=== PATIENT | female | born 1950 | race Caucasian/White ===

== ENCOUNTER → 2016-11-07 | Outpatient (CLI) | payer MEDICARE, OTHER ==
[~2016-11-07] MED LIST: ALLEGRA-D 12 HO1 TE1 PO; DESYREL DIVIDO150 M1 PO; FENTANYL TOP; IBU600 MG PO; LEVOTHYROXINE PO; MIRALAX17 GM PO; NATURE'S BLEN5000 IU PO; NEXIUM 40MG40 MG PO; NORCO 325 MG-7.1 TA1 PO; OMEPRAZOLE D/R20 MG PO; ORAL ANTIBIOTIC; PERCOCET 325 MG1 TA5 PO; ROBAXIN-750750 MG PO; SENNA8.6 M1 PO; SERTRALINE PO; SYNTHROID0.075 MG/T PO; SYNTHROID0.2 MG/TAB PO; ULTRAM50 M1 PO; [UNRECOGNIZED DRUG - OTHER] TOP
[2016-11-07 12:30] VITALS: BP 136/80
== END ==
LOC: AMSURD 12:03
DX: R73.02 Impaired glucose tolerance (oral) (principal); E03.4 Atrophy of thyroid (acquired); E78.2 Mixed hyperlipidemia; M85.89 Other specified disorders of bone density and structure, multiple sites; M15.8 Other polyosteoarthritis; I49.3 Ventricular premature depolarization

== ENCOUNTER → 2016-11-29 | Outpatient (CLI) | payer MEDICARE, OTHER ==
[2016-11-07 12:30] VITALS: BP 136/80
== END ==
LOC: LAB 15:52
DX: Z12.11 Encounter for screening for malignant neoplasm of colon (principal)

== ENCOUNTER → 2017-01-08 | Outpatient (CLI) | payer MEDICARE, OTHER | LOC: RAD 15:50 | DX: S60.122A Contusion of left index finger with damage to nail, initial encounter (principal); S61.217A Laceration without foreign body of left little finger without damage to nail, initial encounter; W45.8XXA Other foreign body or object entering through skin, initial encounter ==

== ENCOUNTER → 2017-01-11 | Outpatient (CLI) | payer MEDICARE, OTHER ==
[2016-11-07 12:30] VITALS: BP 136/80
== END ==
LOC: LAB 16:41
DX: E03.4 Atrophy of thyroid (acquired) (principal)

== ENCOUNTER → 2017-01-23 | Outpatient (CLI) | payer MEDICARE, OTHER ==
[2016-11-07 12:30] VITALS: BP 136/80
== END ==
LOC: MAMMO 10:26
DX: Z12.31 Encounter for screening mammogram for malignant neoplasm of breast (principal)
CPT/HCPCS: G0202

== ENCOUNTER → 2017-01-23 | Outpatient (CLI) | payer MEDICARE, OTHER ==
[2016-11-07 12:30] VITALS: BP 136/80
== END ==
LOC: RAD 10:28
DX: Z13.820 Encounter for screening for osteoporosis (principal); M85.89 Other specified disorders of bone density and structure, multiple sites; M85.851 Other specified disorders of bone density and structure, right thigh

== ENCOUNTER → 2017-07-05 | Outpatient (CLI) | payer MEDICARE, OTHER ==
[2016-11-07 12:30] VITALS: BP 136/80
== END ==
LOC: LAB 16:35
DX: N76.0 Acute vaginitis (principal)
CPT/HCPCS: Q0111

== ENCOUNTER → 2017-08-07 | Outpatient (CLI) | payer MEDICARE, OTHER ==
[2016-11-07 12:30] VITALS: BP 136/80
== END ==
LOC: LAB 15:29
DX: E03.9 Hypothyroidism, unspecified (principal)

== ENCOUNTER → 2017-11-28 | Outpatient (CLI) | payer MEDICARE, OTHER ==
[2016-11-07 12:30] VITALS: BP 136/80
[2017-11-28 12:25] LABS: EOS # 0.3 (0.04-0.40); EOS % 4.6 % (1.0-5.0); HEMATOCRIT 39.6 % (37.0-47.0); HEMOGLOBIN 13.6 g/dL (12.5-16.0); MEAN CELL VOLUME 87 fl (78-100); MEAN CORPUSCULAR HEMOGLOBIN 30 pg (27-31); MEAN CORPUSCULAR HGB CONC 34 g/dL (33-37); MEAN PLATELET VOLUME 10.1 fl (7.4-10.4); MONO # 0.4 (0.20-0.80); PLATELET COUNT 107 K/mm3 (130-400); RED BLOOD COUNT 4.56 M/mm3 (4.10-5.30); RED CELL DISTRIBUTION WIDTH 12.5 % (11.5-14.5); WHITE BLOOD COUNT 5.7 K/mm3 (4.8-10.8)
[2017-11-28 12:51] LABS: BUN/CREATININE RATIO 36.4 (6.0-26.0); CALCIUM 8.9 mg/dL (8.4-10.2); POTASSIUM 4.4 mmol/L (3.6-5.0); TOTAL BILIRUBIN 0.3 mg/dL (0.2-1.3); TOTAL PROTEIN 6.8 g/dL (6.3-8.2)
[2017-11-28 12:55] LABS: PH-URINE 6.5 (5.0 - 8.0); URINE APPEARANCE CLEAR; URINE COLOR YELLOW
[2017-11-28 12:56] LABS: URINE BILIRUBIN NEGATIVE (NEGATIVE); URINE BLOOD NEGATIVE (NEGATIVE); URINE GLUCOSE NEGATIVE (NEGATIVE); URINE KETONE NEGATIVE (NEGATIVE); URINE LEUKOCYTE ESTERASE NEGATIVE (NEGATIVE); URINE NITRATE NEGATIVE (NEGATIVE); URINE PROTEIN(semi-quant) NEGATIVE (NEGATIVE); URINE UROBILINOGEN NORMAL (NORMAL)
[2017-11-28 13:38] LABS: ERYTHROCYTE SEDIMENTATION RATE 12 mm/hr (0-30)
== END ==
LOC: LAB 11:58
PROVIDERS: Internal Medicine
DX: Z12.11 Encounter for screening for malignant neoplasm of colon (principal)

== ENCOUNTER → 2017-12-26 | Outpatient (CLI) | payer MEDICARE, OTHER ==
[2016-11-07 12:30] VITALS: BP 136/80
[2017-12-26 17:31] LABS: CLUE CELLS PRESENT (Not Observd)
== END ==
LOC: LAB 16:35
PROVIDERS: Physician Assistant
DX: Z12.11 Encounter for screening for malignant neoplasm of colon (principal); N89.8 Other specified noninflammatory disorders of vagina; Z88.5 Allergy status to narcotic agent
CPT/HCPCS: Q0111

== ENCOUNTER → 2018-01-22 | Day surgery (SDC) | payer MEDICARE, OTHER ==
[2016-11-07 12:30] VITALS: BP 136/80
== END ==
LOC: MSO 12:47
DX: K22.70 Barrett's esophagus without dysplasia (principal); K21.9 Gastro-esophageal reflux disease without esophagitis; G47.33 Obstructive sleep apnea (adult) (pediatric); E03.9 Hypothyroidism, unspecified; Z88.5 Allergy status to narcotic agent; K29.00 Acute gastritis without bleeding; K29.50 Unspecified chronic gastritis without bleeding; Z87.891 Personal history of nicotine dependence; F32.9 Major depressive disorder, single episode, unspecified; M48.061 Spinal stenosis, lumbar region without neurogenic claudication
CPT/HCPCS: 00731; A4649; J2704; J7120

== ENCOUNTER → 2018-02-27 | Outpatient (CLI) | payer MEDICARE, OTHER ==
[2016-11-07 12:30] VITALS: BP 136/80
== END ==
LOC: MAMMO 09:06
DX: Z12.31 Encounter for screening mammogram for malignant neoplasm of breast (principal)

== ENCOUNTER → 2018-09-17 | Outpatient (CLI) | payer MEDICARE, OTHER ==
[2016-11-07 12:30] VITALS: BP 136/80
[2018-09-18 04:08] LABS: EOS # 0.2 (0.04-0.40); EOS % 3.3 % (1.0-5.0); HEMATOCRIT 40.9 % (37.0-47.0); HEMOGLOBIN 13.9 g/dL (12.5-16.0); LYMPH# 0.8 (1.50-4.00); MEAN CELL VOLUME 87 fl (78-100); MEAN CORPUSCULAR HEMOGLOBIN 30 pg (27-31); MEAN CORPUSCULAR HGB CONC 34 g/dL (33-37); MONO # 0.4 (0.20-0.80); NEU # 4.4 (1.40-6.50); PLATELET COUNT 113 K/mm3 (130-400); RED BLOOD COUNT 4.71 M/mm3 (4.10-5.30); RED CELL DISTRIBUTION WIDTH 12.8 % (11.5-14.5); WHITE BLOOD COUNT 5.8 K/mm3 (4.8-10.8)
[2018-09-18 12:56] LABS: ESTRADIOL 26 pg/mL (()); PROGESTERONE <0.1 ng/mL (())
== END ==
LOC: LAB 16:35
PROVIDERS: Urology
DX: Z79.890 Hormone replacement therapy (principal)

== ENCOUNTER → 2019-01-08 | Outpatient (CLI) | payer MEDICARE, OTHER ==
[2016-11-07 12:30] VITALS: BP 136/80
[2019-01-08 15:42] LABS: HEMATOCRIT 40.7 % (37.0-47.0); HEMOGLOBIN 13.5 g/dL (12.5-16.0); MEAN CELL VOLUME 87 fl (78-100); MEAN CORPUSCULAR HEMOGLOBIN 29 pg (27-31); MEAN CORPUSCULAR HGB CONC 33 g/dL (33-37); MEAN PLATELET VOLUME 10.9 fl (7.4-10.4); PLATELET COUNT 100 K/mm3 (130-400); RED BLOOD COUNT 4.68 M/mm3 (4.10-5.30); RED CELL DISTRIBUTION WIDTH 13.7 % (11.5-14.5); WHITE BLOOD COUNT 4.7 K/mm3 (4.8-10.8)
[2019-01-08 17:04] LABS: LYMPHOCYTE 13 % (20-51); MONOCYTE 6 % (3-10); NEUTROPHILS 78 % (42-75)
[2019-01-08 20:06] LABS: CALCIUM 9.1 mg/dL (8.4-10.2); POTASSIUM 4.3 mmol/L (3.6-5.0); TOTAL BILIRUBIN 0.8 mg/dL (0.2-1.3); TOTAL PROTEIN 6.9 g/dL (6.3-8.2)
[2019-01-08 22:47] LABS: ESTRADIOL 54 pg/mL (()); PROGESTERONE 0.2 ng/mL (()); TESTOSTERONE 20 ng/dL (13-36)
[2019-01-09 00:03] LABS: INSULIN 12 uIU/mL (2-23)
[2019-01-17 10:35] LABS: ESTRONE-SERUM 29 pg/mL (())
== END ==
LOC: LAB 14:53
PROVIDERS: Urology
DX: Z13.220 Encounter for screening for lipoid disorders (principal); Z79.890 Hormone replacement therapy; E63.9 Nutritional deficiency, unspecified; Z72.4 Inappropriate diet and eating habits; E78.5 Hyperlipidemia, unspecified; R73.09 Other abnormal glucose; E55.9 Vitamin D deficiency, unspecified

== ENCOUNTER → 2019-04-08 | Outpatient (CLI) | payer MEDICARE, OTHER ==
[2016-11-07 12:30] VITALS: BP 136/80
== END ==
LOC: MAMMO 14:28
DX: Z12.31 Encounter for screening mammogram for malignant neoplasm of breast (principal)

== ENCOUNTER 2019-04-28 20:22 | Emergency (ER) | payer MEDICARE, OTHER ==
[2019-04-28] MEDS ORDERED: SILVADENE11 TP (21:11)
[2019-04-28] MEDS ORDERED: PERCOCET 325 MG1 TA2 PO (21:12)
[2019-04-28 21:20] VITALS: BP 156/69
== END 2019-04-28 21:20 | disposition home or self-care (01) ==
LOC: ED 20:22
DX: T22.212A Burn of second degree of left forearm, initial encounter (principal); T31.0 Burns involving less than 10% of body surface; K21.9 Gastro-esophageal reflux disease without esophagitis; G47.30 Sleep apnea, unspecified; F32.9 Major depressive disorder, single episode, unspecified; D69.6 Thrombocytopenia, unspecified; Z23 Encounter for immunization; Z87.891 Personal history of nicotine dependence; Z88.5 Allergy status to narcotic agent; Z90.710 Acquired absence of both cervix and uterus; X17.XXXA Contact with hot engines, machinery and tools, initial encounter; Y93.H2 Activity, gardening and landscaping; Y92.007 Garden or yard of unspecified non-institutional (private) residence as the place of occurrence of the external cause
CPT/HCPCS: 90715

== ENCOUNTER 2019-06-19 15:00 | Outpatient (RCR) | payer MEDICARE, OTHER ==
[~2019-06-19 15:00] MED LIST changes: +PERCOCET 325 MG1 TA2 PO; +SILVADENE11 TP
== END 2019-06-19 15:30 | disposition home or self-care (01) ==
LOC: PT 15:00
DX: M51.36 Other intervertebral disc degeneration, lumbar region (principal)

== ENCOUNTER → 2019-10-28 | Outpatient (CLI) | payer MEDICARE, OTHER ==
[2019-10-28 16:30] LABS: EOS # 0.2 (0.04-0.40); EOS % 3.7 % (1.0-5.0); HEMATOCRIT 39.6 % (37.0-47.0); HEMOGLOBIN 13.4 g/dL (12.5-16.0); MEAN CELL VOLUME 87 fl (78-100); MEAN CORPUSCULAR HEMOGLOBIN 30 pg (27-31); MEAN CORPUSCULAR HGB CONC 34 g/dL (33-37); MEAN PLATELET VOLUME 10.6 fl (7.4-10.4); MONO # 0.4 (0.20-0.80); NEU # 3.3 (1.40-6.50); PLATELET COUNT 107 K/mm3 (130-400); RED BLOOD COUNT 4.53 M/mm3 (4.10-5.30); RED CELL DISTRIBUTION WIDTH 13.1 % (11.5-14.5); WHITE BLOOD COUNT 4.6 K/mm3 (4.8-10.8)
[2019-10-28 16:34] LABS: ALBUMIN 4.2 g/dL (3.4-4.8); POTASSIUM 4.6 mmol/L (3.5-5.1)
[2019-10-28 16:35] LABS: CALCIUM 8.1 mg/dL (8.3-10.5)
[2019-10-28 16:37] LABS: TOTAL PROTEIN 6.8 g/dL (6.2-8.1)
[2019-10-28 16:38] LABS: TOTAL BILIRUBIN 0.7 mg/dL (0.2-1.2)
[2019-10-28 17:28] LABS: LYMPH# 0.7 (1.50-4.00)
[2019-10-28 17:29] LABS: ERYTHROCYTE SEDIMENTATION RATE 12 mm/hr (0-30)
[2019-10-29 18:35] LABS: ESTRADIOL 41 pg/mL (()); PROGESTERONE 1.1 ng/mL (())
[2019-10-29 19:14] LABS: TESTOSTERONE <13 ng/dL (13-36)
== END ==
LOC: LAB 15:49
PROVIDERS: Internal Medicine
DX: N95.1 Menopausal and female climacteric states (principal); R73.02 Impaired glucose tolerance (oral); M85.89 Other specified disorders of bone density and structure, multiple sites; E78.5 Hyperlipidemia, unspecified; E03.9 Hypothyroidism, unspecified

== ENCOUNTER 2020-03-26 09:04 | Emergency (ER) | payer MEDICARE, OTHER ==
[~2020-03-26] VITALS: Ht 162.6 cm; Wt 100.5 kg
[2020-03-26] MEDS ORDERED: PREMPHASE 0.621 EACH PO (09:43)
[2020-03-26 09:56] LABS: HEMATOCRIT 42.4 % (37.0-47.0); HEMOGLOBIN 14.5 g/dL (12.5-16.0); MEAN CELL VOLUME 87 fl (78-100); MEAN CORPUSCULAR HEMOGLOBIN 30 pg (27-31); MEAN CORPUSCULAR HGB CONC 34 g/dL (33-37); MEAN PLATELET VOLUME 10.4 fl (7.4-10.4); PLATELET COUNT 115 K/mm3 (130-400); RED BLOOD COUNT 4.87 M/mm3 (4.10-5.30); RED CELL DISTRIBUTION WIDTH 12.7 % (11.5-14.5); WHITE BLOOD COUNT 7.4 K/mm3 (4.8-10.8)
[2020-03-26 10:08] LABS: ALBUMIN 4.3 g/dL (3.4-4.8); POTASSIUM 4.2 mmol/L (3.5-5.1)
[2020-03-26 10:10] LABS: CALCIUM 9.6 mg/dL (8.3-10.5)
[2020-03-26 10:11] LABS: TOTAL PROTEIN 7.2 g/dL (6.2-8.1)
[2020-03-26 10:13] LABS: TOTAL BILIRUBIN 0.4 mg/dL (0.2-1.2)
[2020-03-26 10:25] LABS: LYMPHOCYTE 15 % (20-51); MONOCYTE 6 % (3-10); NEUTROPHILS 78 % (42-75)
[2020-03-26 12:07] LABS: URINE APPEARANCE CLEAR; URINE BILIRUBIN NEGATIVE (NEGATIVE); URINE COLOR YELLOW; URINE GLUCOSE NEGATIVE (NEGATIVE); URINE KETONE NEGATIVE (NEGATIVE); URINE PROTEIN(semi-quant) NEGATIVE (NEGATIVE); URINE UROBILINOGEN NORMAL (NORMAL)
[2020-03-26 12:08] VITALS: BP 139/87
[2020-03-26 12:08] LABS: URINE BLOOD NEGATIVE (NEGATIVE); URINE LEUKOCYTE ESTERASE NEGATIVE (NEGATIVE); URINE MUCUS PRESENT (NOT PRESENT); URINE NITRATE NEGATIVE (NEGATIVE)
== END 2020-03-26 12:08 | disposition home or self-care (01) ==
LOC: ED 09:04
PROVIDERS: Nurse Practitioner Primary Care
DX: H53.8 Other visual disturbances (principal); F43.0 Acute stress reaction; F32.9 Major depressive disorder, single episode, unspecified; Z96.653 Presence of artificial knee joint, bilateral; Z96.642 Presence of left artificial hip joint

== ENCOUNTER → 2020-04-30 | Outpatient (CLI) | payer MEDICARE, OTHER ==
[~2020-04-30] MED LIST changes: +PREMPHASE 0.621 EACH PO
[2020-04-30 13:04] LABS: HEMATOCRIT 41.5 % (37.0-47.0); HEMOGLOBIN 14.1 g/dL (12.5-16.0); MEAN CELL VOLUME 87 fl (78-100); MEAN CORPUSCULAR HEMOGLOBIN 30 pg (27-31); MEAN CORPUSCULAR HGB CONC 34 g/dL (33-37); MEAN PLATELET VOLUME 10.4 fl (7.4-10.4); PLATELET COUNT 103 K/mm3 (130-400); RED BLOOD COUNT 4.75 M/mm3 (4.10-5.30); RED CELL DISTRIBUTION WIDTH 12.9 % (11.5-14.5); WHITE BLOOD COUNT 7.3 K/mm3 (4.8-10.8)
[2020-04-30 13:14] LABS: POTASSIUM 4.4 mmol/L (3.5-5.1)
[2020-04-30 13:15] LABS: ALBUMIN 4.4 g/dL (3.4-4.8)
[2020-04-30 13:16] LABS: CALCIUM 9.1 mg/dL (8.3-10.5)
[2020-04-30 13:17] LABS: TOTAL PROTEIN 7.3 g/dL (6.2-8.1)
[2020-04-30 13:19] LABS: TOTAL BILIRUBIN 0.4 mg/dL (0.2-1.2)
[2020-04-30 13:44] LABS: LYMPHOCYTE 9 % (20-51); MONOCYTE 2 % (3-10); NEUTROPHILS 81 % (42-75)
[2020-04-30 14:02] LABS: ERYTHROCYTE SEDIMENTATION RATE 15 mm/hr (0-30); PH-URINE 6.5 (5.0 - 8.0); URINE APPEARANCE CLEAR; URINE COLOR YELLOW; URINE PROTEIN(semi-quant) TRACE mg/dL (NEGATIVE)
[2020-04-30 14:03] LABS: URINE BILIRUBIN NEGATIVE (NEGATIVE); URINE BLOOD NEGATIVE (NEGATIVE); URINE GLUCOSE NEGATIVE (NEGATIVE); URINE KETONE NEGATIVE (NEGATIVE); URINE LEUKOCYTE ESTERASE NEGATIVE (NEGATIVE); URINE NITRATE NEGATIVE (NEGATIVE); URINE UROBILINOGEN NORMAL (NORMAL)
== END ==
LOC: LAB 12:40
PROVIDERS: Internal Medicine
DX: Z12.11 Encounter for screening for malignant neoplasm of colon (principal); E78.5 Hyperlipidemia, unspecified; E03.9 Hypothyroidism, unspecified; M85.80 Other specified disorders of bone density and structure, unspecified site; R73.02 Impaired glucose tolerance (oral)

== ENCOUNTER → 2020-05-12 | Outpatient (CLI) | payer MEDICARE, OTHER | LOC: MAMMO 15:34 | DX: Z12.31 Encounter for screening mammogram for malignant neoplasm of breast (principal) ==

== ENCOUNTER → 2020-05-12 | Outpatient (CLI) | payer MEDICARE, OTHER | LOC: RAD 05-11 15:00 | DX: H54.62 Unqualified visual loss, left eye, normal vision right eye (principal); I65.23 Occlusion and stenosis of bilateral carotid arteries ==

== ENCOUNTER → 2020-07-19 | Outpatient (CLI) | payer MEDICARE, OTHER ==
[2020-07-19 09:29] LABS: ALBUMIN 4.5 g/dL (3.4-4.8)
[2020-07-19 09:30] LABS: POTASSIUM 4.5 mmol/L (3.5-5.1)
[2020-07-19 09:31] LABS: CALCIUM 9.5 mg/dL (8.3-10.5)
[2020-07-19 09:32] LABS: TOTAL PROTEIN 7.4 g/dL (6.2-8.1)
[2020-07-19 09:34] LABS: TOTAL BILIRUBIN 0.7 mg/dL (0.2-1.2)
[2020-07-20 04:22] LABS: PROGESTERONE 1.5 ng/mL (())
== END ==
LOC: LAB 09:08
PROVIDERS: Internal Medicine
DX: E03.9 Hypothyroidism, unspecified (principal); N95.1 Menopausal and female climacteric states; R73.02 Impaired glucose tolerance (oral)

== ENCOUNTER → 2020-08-06 | Outpatient (CLI) | payer MEDICARE, OTHER | LOC: CARDLAB 08-05 15:13 | DX: G47.10 Hypersomnia, unspecified (principal); G47.8 Other sleep disorders; R53.83 Other fatigue | CPT/HCPCS: G0399 ==

== ENCOUNTER 2020-08-31 09:31 | Outpatient (RCR) | payer MEDICARE | END 2020-09-06 16:13 | LOC: OPPGERO 09:31 | DX: F33.9 Major depressive disorder, recurrent, unspecified (principal); Z96.649 Presence of unspecified artificial hip joint; Z96.659 Presence of unspecified artificial knee joint; Z87.891 Personal history of nicotine dependence ==

== ENCOUNTER 2020-09-07 12:18 | Outpatient (RCR) | payer MEDICARE | END 2020-10-07 18:20 | disposition home or self-care (01) | LOC: OPPGERO 12:18 | DX: F33.1 Major depressive disorder, recurrent, moderate (principal); I10 Essential (primary) hypertension; M19.90 Unspecified osteoarthritis, unspecified site; K21.9 Gastro-esophageal reflux disease without esophagitis; Z96.659 Presence of unspecified artificial knee joint; Z96.649 Presence of unspecified artificial hip joint; Z87.891 Personal history of nicotine dependence ==

== ENCOUNTER → 2020-10-28 | Outpatient (CLI) | payer MEDICARE ==
[2020-10-28 17:14] LABS: POTASSIUM 4.4 mmol/L (3.5-5.1)
[2020-10-28 17:15] LABS: ALBUMIN 4.1 g/dL (3.4-4.8)
[2020-10-28 17:17] LABS: TOTAL PROTEIN 6.6 g/dL (6.2-8.1)
[2020-10-28 17:18] LABS: HEMATOCRIT 40.9 % (37.0-47.0); HEMOGLOBIN 13.5 g/dL (12.5-16.0); MEAN CELL VOLUME 89 fl (78-100); MEAN CORPUSCULAR HEMOGLOBIN 30 pg (27-31); MEAN CORPUSCULAR HGB CONC 33 g/dL (33-37); MEAN PLATELET VOLUME 10.7 fl (7.4-10.4); PLATELET COUNT 109 K/mm3 (130-400); RED BLOOD COUNT 4.58 M/mm3 (4.10-5.30); RED CELL DISTRIBUTION WIDTH 12.6 % (11.5-14.5); WHITE BLOOD COUNT 5.3 K/mm3 (4.8-10.8)
[2020-10-28 17:19] LABS: TOTAL BILIRUBIN 0.4 mg/dL (0.2-1.2)
[2020-10-28 20:48] LABS: LYMPHOCYTE 11 % (20-51); MONOCYTE 4 % (3-10); NEUTROPHILS 83 % (42-75)
== END ==
LOC: LAB 16:40
PROVIDERS: Internal Medicine
DX: E03.4 Atrophy of thyroid (acquired) (principal); I10 Essential (primary) hypertension; K90.9 Intestinal malabsorption, unspecified; E78.2 Mixed hyperlipidemia

== ENCOUNTER → 2020-12-10 | Outpatient (CLI) | payer MEDICARE | LOC: CARDLAB 12-09 13:22 → CARDREHAB 07:51 | DX: I25.10 Atherosclerotic heart disease of native coronary artery without angina pectoris (principal) | CPT/HCPCS: A9500 ==

== ENCOUNTER → 2021-06-15 | Outpatient (CLI) | payer MEDICARE | LOC: MAMMO 14:19 | DX: Z12.31 Encounter for screening mammogram for malignant neoplasm of breast (principal) ==

== ENCOUNTER → 2021-09-26 | Outpatient (CLI) | payer MEDICARE ==
[2021-09-26 15:57] LABS: BASO # 0.03 K/mm3 (0.02-0.10); EOS # 0.22 K/mm3 (0.04-0.40); EOS % 3.5 % (1.0-5.0); HEMATOCRIT 43.4 % (37.0-47.0); HEMOGLOBIN 14.6 g/dL (12.5-16.0); LYMPH# 0.89 K/mm3 (1.50-4.00); MEAN CELL VOLUME 88 fl (78-100); MEAN CORPUSCULAR HEMOGLOBIN 30 pg (27-31); MEAN CORPUSCULAR HGB CONC 34 g/dL (33-37); MEAN PLATELET VOLUME 10.8 fl (7.4-10.4); MONO # 0.46 K/mm3 (0.20-0.80); NEU # 4.64 K/mm3 (1.40-6.50); PLATELET COUNT 120 K/mm3 (130-400); RED BLOOD COUNT 4.91 M/mm3 (4.10-5.30); RED CELL DISTRIBUTION WIDTH 11.9 % (11.5-14.5); WHITE BLOOD COUNT 6.3 K/mm3 (4.8-10.8)
[2021-09-26 16:04] LABS: POTASSIUM 4.4 mmol/L (3.5-5.1)
[2021-09-26 16:05] LABS: ALBUMIN 4.4 g/dL (3.4-4.8)
[2021-09-26 16:06] LABS: CALCIUM 9.6 mg/dL (8.3-10.5)
[2021-09-26 16:07] LABS: TOTAL PROTEIN 7.2 g/dL (6.2-8.1)
[2021-09-26 16:09] LABS: TOTAL BILIRUBIN 0.6 mg/dL (0.2-1.2)
== END ==
LOC: LAB 15:37
PROVIDERS: Internal Medicine
DX: M19.011 Primary osteoarthritis, right shoulder (principal); I10 Essential (primary) hypertension; E78.2 Mixed hyperlipidemia; R73.03 Prediabetes; K90.9 Intestinal malabsorption, unspecified

== ENCOUNTER → 2021-10-14 | Outpatient (CLI) | payer MEDICARE | LOC: RAD 16:08 | DX: M19.071 Primary osteoarthritis, right ankle and foot (principal); M77.31 Calcaneal spur, right foot ==

== ENCOUNTER → 2022-06-15 | Outpatient (CLI) | payer MEDICARE | LOC: MAMMO 07:45 | DX: Z12.31 Encounter for screening mammogram for malignant neoplasm of breast (principal) ==

== ENCOUNTER → 2022-12-26 | Outpatient (CLI) | payer MEDICARE ==
[2022-12-26 15:35] LABS: BASO # 0.01 K/mm3 (0.02-0.10); EOS % 3.7 % (1.0-5.0); HEMATOCRIT 39.6 % (37.0-47.0); HEMOGLOBIN 13.7 g/dL (12.5-16.0); LYMPH# 0.86 K/mm3 (1.50-4.00); MEAN CELL VOLUME 90 fl (78-100); MEAN CORPUSCULAR HEMOGLOBIN 31 pg (27-31); MEAN CORPUSCULAR HGB CONC 35 g/dL (33-37); MEAN PLATELET VOLUME 10.3 fl (7.4-10.4); MONO # 0.42 K/mm3 (0.20-0.80); NEU # 3.92 K/mm3 (1.40-6.50); PLATELET COUNT 101 K/mm3 (130-400); RED CELL DISTRIBUTION WIDTH 12.4 % (11.5-14.5); WHITE BLOOD COUNT 5.4 K/mm3 (4.8-10.8)
[2022-12-26 15:37] LABS: ALBUMIN 4.2 g/dL (3.4-4.8); POTASSIUM 4.8 mmol/L (3.5-5.1)
[2022-12-26 15:38] LABS: CALCIUM 9.3 mg/dL (8.3-10.5)
[2022-12-26 15:39] LABS: TOTAL PROTEIN 6.5 g/dL (6.2-8.1)
[2022-12-26 15:41] LABS: TOTAL BILIRUBIN 0.6 mg/dL (0.2-1.2)
[2022-12-26 15:59] LABS: URINE APPEARANCE HAZY; URINE BILIRUBIN NEGATIVE (NEGATIVE); URINE BLOOD TRACE (NEGATIVE); URINE COLOR YELLOW; URINE GLUCOSE NEGATIVE (NEGATIVE); URINE KETONE NEGATIVE (NEGATIVE); URINE LEUKOCYTE ESTERASE 1+ (NEGATIVE); URINE NITRATE NEGATIVE (NEGATIVE); URINE PROTEIN(semi-quant) TRACE (NEGATIVE); URINE UROBILINOGEN NORMAL (NORMAL)
[2022-12-26 16:41] LABS: ERYTHROCYTE SEDIMENTATION RATE 5 mm/hr (0-30)
[2022-12-26 23:14] LABS: MAGNESIUM 1.95 mg/dL (1.60-2.60)
== END ==
LOC: LAB 15:07
PROVIDERS: Internal Medicine
DX: I25.10 Atherosclerotic heart disease of native coronary artery without angina pectoris (principal); G47.33 Obstructive sleep apnea (adult) (pediatric); M48.061 Spinal stenosis, lumbar region without neurogenic claudication; G56.11 Other lesions of median nerve, right upper limb; I10 Essential (primary) hypertension; K21.9 Gastro-esophageal reflux disease without esophagitis; K90.9 Intestinal malabsorption, unspecified; M85.88 Other specified disorders of bone density and structure, other site; E03.4 Atrophy of thyroid (acquired); M19.90 Unspecified osteoarthritis, unspecified site; E78.2 Mixed hyperlipidemia; R20.2 Paresthesia of skin; M25.511 Pain in right shoulder; R73.03 Prediabetes

== ENCOUNTER → 2023-01-01 | Outpatient (CLI) | payer MEDICARE | LOC: RAD 10:54 | DX: Z13.820 Encounter for screening for osteoporosis (principal); M85.88 Other specified disorders of bone density and structure, other site ==

== ENCOUNTER → 2024-02-12 | Outpatient (CLI) | payer MEDICARE ==
[2024-02-12 16:26] LABS: BASO # 0.01 K/mm3 (0.02-0.10); EOS % 1.3 % (1.0-5.0); HEMATOCRIT 42.6 % (37.0-47.0); HEMOGLOBIN 14.4 g/dL (12.5-16.0); LYMPH# 0.87 K/mm3 (1.50-4.00); MEAN CELL VOLUME 88 fl (78-100); MEAN CORPUSCULAR HEMOGLOBIN 30 pg (27-31); MEAN CORPUSCULAR HGB CONC 34 g/dL (33-37); MONO # 0.58 K/mm3 (0.20-0.80); NEU # 6.14 K/mm3 (1.40-6.50); PLATELET COUNT 126 K/mm3 (130-400); RED BLOOD COUNT 4.85 M/mm3 (4.10-5.30); RED CELL DISTRIBUTION WIDTH 11.8 % (11.5-14.5); WHITE BLOOD COUNT 7.7 K/mm3 (4.8-10.8)
[2024-02-12 16:35] LABS: ALBUMIN 4.4 g/dL (3.4-4.8)
[2024-02-12 16:36] LABS: CALCIUM 9.8 mg/dL (8.3-10.5)
[2024-02-12 16:37] LABS: TOTAL PROTEIN 7.1 g/dL (6.2-8.1)
[2024-02-12 16:39] LABS: TOTAL BILIRUBIN 0.5 mg/dL (0.2-1.2)
[2024-02-12 16:44] LABS: MAGNESIUM 2.01 mg/dL (1.60-2.60)
[2024-02-12 16:49] LABS: URINE APPEARANCE CLEAR (CLEAR); URINE BILIRUBIN NEGATIVE (NEGATIVE); URINE BLOOD NEGATIVE (NEGATIVE); URINE COLOR YELLOW (YELLOW); URINE GLUCOSE NEGATIVE (NEGATIVE); URINE KETONE NEGATIVE (NEGATIVE); URINE LEUKOCYTE ESTERASE TRACE (NEGATIVE); URINE NITRATE NEGATIVE (NEGATIVE); URINE PROTEIN(semi-quant) NEGATIVE (NEGATIVE)
== END ==
LOC: LAB 16:04
PROVIDERS: Internal Medicine
DX: Z12.11 Encounter for screening for malignant neoplasm of colon (principal); K90.9 Intestinal malabsorption, unspecified; E03.4 Atrophy of thyroid (acquired); I10 Essential (primary) hypertension; R73.03 Prediabetes; E78.2 Mixed hyperlipidemia

== ENCOUNTER → 2024-05-15 | Outpatient (CLI) | payer MEDICARE | LOC: LAB 15:15 | DX: E03.4 Atrophy of thyroid (acquired) (principal) ==

== ENCOUNTER → 2024-07-30 | Outpatient (CLI) | payer MEDICARE | LOC: MAMMO 13:56 | DX: Z12.31 Encounter for screening mammogram for malignant neoplasm of breast (principal) ==

== ENCOUNTER → 2024-10-10 | Outpatient (CLI) | payer MEDICARE | LOC: RAD 18:20 | DX: M19.071 Primary osteoarthritis, right ankle and foot (principal) ==

== ENCOUNTER → 2024-11-27 | Outpatient (CLI) | payer MEDICARE ==
[2024-11-27 14:47] LABS: ALBUMIN 4.4 g/dL (3.4-4.8)
[2024-11-27 14:49] LABS: CALCIUM 9.4 mg/dL (8.3-10.5)
[2024-11-27 14:50] LABS: TOTAL PROTEIN 7.5 g/dL (6.2-8.1)
[2024-11-27 14:52] LABS: TOTAL BILIRUBIN 0.4 mg/dL (0.2-1.2)
[2024-11-27 14:56] LABS: MAGNESIUM 1.97 mg/dL (1.60-2.60)
[2024-11-27 15:00] LABS: BASO # 0.02 K/mm3 (0.02-0.10); EOS # 0.09 K/mm3 (0.04-0.40); EOS % 1.5 % (1.0-5.0); HEMATOCRIT 40.1 % (37.0-47.0); HEMOGLOBIN 13.7 g/dL (12.5-16.0); MEAN CELL VOLUME 87 fl (78-100); MEAN CORPUSCULAR HEMOGLOBIN 30 pg (27-31); MEAN CORPUSCULAR HGB CONC 34 g/dL (33-37); MEAN PLATELET VOLUME 10.5 fl (7.4-10.4); MONO # 0.42 K/mm3 (0.20-0.80); NEU # 4.78 K/mm3 (1.40-6.50); PLATELET COUNT 108 K/mm3 (130-400); WHITE BLOOD COUNT 6.1 K/mm3 (4.8-10.8)
== END ==
LOC: LAB 14:27
PROVIDERS: Internal Medicine
DX: I10 Essential (primary) hypertension (principal); R73.03 Prediabetes